=== PATIENT | male | born 1970 | race Caucasian/White ===

== ENCOUNTER 2018-08-05 13:11 | Emergency (ER) | payer BC ==
[2018-08-05] MEDS ORDERED: GLUCAGON 1 MG/VIAL ONE (14:37)
--- NOTE | 2018-08-05 15:30 | ER ---
Nurse's Notes [facility] Name: Moiz Smart Age: 47 yrs Sex: Male : 1970 Arrival Date: 08/05/2018 Time: 13:14 Bed 16 Private MD: Diagnosis: Food Bolus - resolved Presentation: 08/05 13:37 Presenting complaint: Patient states: " I was eating lunch and a little piece of steak ph got stuck in my esophagus." Pt reports that this has happened on other occasions, reports discomfort in center of upper chest, also states, " I tried to throw up and only a little bit came out but I still feel some there. My head hurts now too." Pt in no distress, able to speak in full sentences. Transition of care: patient was not received from another setting of care. Onset of symptoms was August 05, 2018. Risk Assessment: Do you want to hurt yourself or someone else? Patient reports no desire to harm self or others. Initial Sepsis Screen: Does the patient meet any 2 criteria? No. Patient's initial sepsis screen is negative. Does the patient have a suspected source of infection? No. Patient's initial sepsis screen is negative. Care prior to arrival: None. 13:37 Method Of Arrival: Ambulatory ph 13:37 Acuity: LESA 3 ph Triage Assessment: 13:57 General: Appears in no apparent distress. comfortable, Behavior is calm, cooperative, bp appropriate for age. Pain: Denies pain. Historical: - Allergies: 13:43 No Known Allergies; ph - PSHx: 13:43 Tonsillectomy; ph - Immunization history:: Adult Immunizations unknown. - Social history:: Smoking status: unknown. - Ebola Screening: : Patient negative for fever greater than or equal to 101.5 degrees Fahrenheit, and additional compatible Ebola Virus Disease symptoms Patient denies exposure to infectious person Patient denies travel to an Ebola-affected area in the 21 days before illness onset. Screenin:59 Abuse screen: Denies threats or abuse. Denies injuries from another. Nutritional bp screening: No deficits noted. Tuberculosis screening: No symptoms or risk factors identified. Fall Risk None identified. Assessment: 13:58 General: Appears in no apparent distress. comfortable, Behavior is calm, cooperative, bp appropriate for age. Pain: Denies pain. Neuro: Level of Consciousness is awake, alert, obeys commands, Oriented to person, place, time, situation, Appropriate for age. Cardiovascular: No deficits noted. Respiratory: Airway is patent Respiratory effort is even, unlabored, Respiratory pattern is regular, symmetrical. GI: Reports FOOD BOLUS SENSATION. : No signs and/or symptoms were reported regarding the genitourinary system. EENT: No deficits noted. Derm: No deficits noted. Musculoskeletal: Circulation, motion, and sensation intact. Range of motion: intact in all extremities. 14:58 Reassessment: ALL CURRENT ORDERS COMPLETED, VS STABLE ON MONITOR. bp Vital Signs: 13:40 Pulse 81; Resp 18; Temp 97.9; Pulse Ox 98% on R/A; Weight 149.69 kg; Height 6 ft. 2 in. ph (187.96 cm); 13:43 BP 139 / 97; ph 14:57 BP 135 / 78; Pulse 97; Resp 16; Pulse Ox 95% ; bp 15:41 BP 137 / 82; Pulse 88 MON; Resp 16 S; Pulse Ox 100% on R/A; rv 13:40 Body Mass Index 42.37 (149.69 kg, 187.96 cm) ph ED Course: 13:14 Patient arrived in ED. ph 13:40 Triage completed. ph 13:43 Arm band placed on. ph 13:57 Romulo Ding, DOMINIQUE is Primary Nurse. bp 13:59 Ute Jones [facility]C [facility]. kb 13:59 Lang Adkins MD is Attending Physician. kb 13:59 Patient has correct armband on for positive identification. Bed in low position. Call bp light in reach. Side rails up X2. 14:30 Inserted saline lock: 20 gauge in left forearm, using aseptic technique. bp 15:41 No provider procedures requiring assistance completed. IV discontinued, bleeding rv controlled, No redness/swelling at site. Pressure dressing applied. Administered Medications: 14:30 Drug: Glucagon 1 mg Route: IVP; Site: left forearm; bp Outcome: 15:30 Discharge ordered by . kb 15:42 Discharged to home ambulatory. rv 15:42 Condition: good 15:42 Discharge instructions given to patient, Instructed on discharge instructions, follow up and referral plans. Demonstrated understanding of instructions, follow-up care. 15:43 Patient left the ED. rv Signatures: Ute Jones FNP-C FNP-Ana Rosa Hendrickson, RN RN ph Romulo Ding, RN RN bp Dion López, RN RN rv
--- NOTE | 2018-08-05 15:30 | EDPHYS ---
Physician Documentation [facility] Name: Moiz Smart Age: 47 yrs Sex: Male : 1970 Arrival Date: 08/05/2018 Time: 13:14 Bed 16 Private MD: ED Physician Lang Adkins HPI: 08/05 15:18 This 47 yrs old Male presents to ER via Ambulatory with complaints of FOOD kb BOLUS. 15:18 The patient or guardian reports the patient has a suspected foreign body, that has been kb ingested, of the esophagus. The reported likely foreign body is piece of steak. Onset: The symptoms/episode began/occurred at 11:00. Current symptoms: foreign body sensation. Treatment Prior to Arrival: tried to vomit. The patient has experienced similar episodes in the past, a few times, and the symptoms today are exactly the same, to previous food bolus. The patient has not recently seen a physician. Pt reports he was eating steak at 1100 and a piece got stuck in esophagus. This has happened in the past and he was able to vomit and get it out, but he tried multiple times and is unable to get it up. Tried drinking soda without relief. Historical: - Allergies: 13:43 No Known Allergies; ph - PSHx: 13:43 Tonsillectomy; ph - Immunization history:: Adult Immunizations unknown. - Social history:: Smoking status: unknown. - Ebola Screening: : Patient negative for fever greater than or equal to 101.5 degrees Fahrenheit, and additional compatible Ebola Virus Disease symptoms Patient denies exposure to infectious person Patient denies travel to an Ebola-affected area in the 21 days before illness onset. ROS: 15:27 Constitutional: Negative for fever, chills, and weight loss, ENT: Negative for injury, kb pain, and discharge, Neck: Negative for injury, pain, and swelling, Cardiovascular: Negative for chest pain, palpitations, and edema, Respiratory: Negative for shortness of breath, cough, wheezing, and pleuritic chest pain, Abdomen/GI: Negative for abdominal pain, nausea, vomiting, diarrhea, and constipation, MS/Extremity: Negative for injury and deformity, Skin: Negative for injury, rash, and discoloration, Neuro: Negative for headache, weakness, numbness, tingling, and seizure. 15:27 Abdomen/GI: Positive for FB sensation just above epigastric area. Exam: 15:28 Constitutional: This is a well developed, well nourished patient who is awake, alert, kb and in no acute distress. Head/Face: Normocephalic, atraumatic. ENT: Nares patent. No nasal discharge, no septal abnormalities noted. Tympanic membranes are normal and external auditory canals are clear. Oropharynx with no redness, swelling, or masses, exudates, or evidence of obstruction, uvula midline. Mucous membranes moist. Neck: Trachea midline, no thyromegaly or masses palpated, and no cervical lymphadenopathy. Supple, full range of motion without nuchal rigidity, or vertebral point tenderness. No Meningismus. Chest/axilla: Normal chest wall appearance and motion. Nontender with no deformity. No lesions are appreciated. Cardiovascular: Regular rate and rhythm with a normal S1 and S2. No gallops, murmurs, or rubs. Normal PMI, no JVD. No pulse deficits. Respiratory: Lungs have equal breath sounds bilaterally, clear to auscultation and percussion. No rales, rhonchi or wheezes noted. No increased work of breathing, no retractions or nasal flaring. Abdomen/GI: Soft, non-tender, with normal bowel sounds. No distension or tympany. No guarding or rebound. No evidence of tenderness throughout. Skin: Warm, dry with normal turgor. Normal color with no rashes, no lesions, and no evidence of cellulitis. MS/ Extremity: Pulses equal, no cyanosis. Neurovascular intact. Full, normal range of motion. Neuro: Awake and alert, GCS 15, oriented to person, place, time, and situation. Cranial nerves II-XII grossly intact. Motor strength 5/5 in all extremities. Sensory grossly intact. Cerebellar exam normal. Normal gait. Vital Signs: 13:40 Pulse 81; Resp 18; Temp 97.9; Pulse Ox 98% on R/A; Weight 149.69 kg; Height 6 ft. 2 in. ph (187.96 cm); 13:43 BP 139 / 97; ph 14:57 BP 135 / 78; Pulse 97; Resp 16; Pulse Ox 95% ; bp 15:41 BP 137 / 82; Pulse 88 MON; Resp 16 S; Pulse Ox 100% on R/A; rv 13:40 Body Mass Index 42.37 (149.69 kg, 187.96 cm) ph MDM: 13:59 Patient medically screened. kb 15:28 Data reviewed: vital signs, nurses notes. Data interpreted: Pulse oximetry: on room air kb is 95 %. Interpretation: normal. Counseling: I had a detailed discussion with the patient and/or guardian regarding: the historical points, exam findings, and any diagnostic results supporting the discharge/admit diagnosis, the need for outpatient follow up, a family practitioner, to return to the emergency department if symptoms worsen or persist or if there are any questions or concerns that arise at home. ED course: Pt drank coke and was able to get food down. Pt reports relief of symptoms. 08/05 14:16 Order name: IV Start; Complete Time: 14:39 kb Administered Medications: 14:30 Drug: Glucagon 1 mg Route: IVP; Site: left forearm; bp Disposition: 08/06 07:36 Co-signature as Attending Physician, Lang Adkins MD I agree with the assessment and kdr plan of care. Disposition: 08/05/18 15:30 Discharged to Home. Impression: Food Bolus - resolved. - Condition is Stable. - Medication Reconciliation Form, Thank You Letter, Antibiotic Education, Prescription Opioid Use form. - Follow up: Emergency Department; When: As needed; Reason: Worsening of condition. Follow up: Private Physician; When: 2 - 3 days; Reason: Recheck today's complaints, Continuance of care, Re-evaluation by your physician. Signatures: Ute Jones, MARKER ASSEMBLER-C MARKER ASSEMBLER-Ckb Lang Adkins MD MD [facility] Ana Rosa Echeverria RN RN Romulo Ding RN RN bp Vicente, Ronaldo, RN RN rv Corrections: (The following items were deleted from the chart) 08/05 15:29 15:18 Pt reports he was eating steak at 1100 and a piece got stuck in esophagus. This kb has happened in the past and he was able to vomit and get it out, but he tried multiple times and is unable to get it up.. kb 15:43 15:30 08/05/2018 15:30 Discharged to Home. Impression: Food Bolus - resolved. Condition rv is Stable. Forms are Medication Reconciliation Form, Thank You Letter, Antibiotic Education, Prescription Opioid Use. Follow up: Emergency Department; When: As needed; Reason: Worsening of condition. Follow up: Private Physician; When: 2 - 3 days; Reason: Recheck today's complaints, Continuance of care, Re-evaluation by your physician. kb
== END 2018-08-05 15:43 | disposition home or self-care (01) ==
LOC: ER 13:11
DX: T18.128A Food in esophagus causing other injury, initial encounter (principal); X58.XXXA Exposure to other specified factors, initial encounter; Y93.89 Activity, other specified; Y92.9 Unspecified place or not applicable
CPT/HCPCS: 96374; 99283; J1610